=== PATIENT | female | born 1945 | race Caucasian/White ===

== ENCOUNTER 2016-07-07 13:59 | Inpatient (IN) | payer MEDICARE, OTHER ==
[~2016-07-07] VITALS: Ht 167.6 cm; Wt 69.0 kg
[~2016-07-07 13:59] MED LIST: ALBUTEROL IN200 PUFF INH; ALDACTONE25 MG PO; AMIODARONE HCL200 MG PO; ASPIRIN EC81 MG PO; ATROVENT2.5 ML NEB; BENADRYL25 MG PO; BUMEX1 MG PO; CARAFATE1 GM PO; CEFDINIR300 MG PO; CHILDRENS CHEWA81 MG PO; COLACE100 MG PO; COUGH CONT100 MG/5 M PO; CYANOCOBAL1000 MCG/M SC; FEOSOL325 MG PO; FERROUS SULFAT325 MG PO; FLEXERIL10 MG PO; FLONASE 0.05% N16 GM; FOLIC ACID1 MG PO; GLUCOPHAGE500 MG PO; LANOXIN125 MCG PO; LASIX20 MG PO; LEVAQUIN250 MG PO; LEVAQUIN500 MG PO; LEVAQUIN750 MG PO; LEXAPRO10 MG PO; LEXAPRO20 MG PO; MAGOX 400400 MG PO; METOPROLOL SUCC25 MG PO; MILK OF MA400 MG/5 M PO; NEURONTIN800 MG PO; PANTOPRAZOLE SO40 MG PO; POTASSIUM CHLO20 ME1 PO; PREDNISONE10 MG PO; PULMICORT0.5 MG/2 M INH; REQUIP1 MG PO; RESTORIL15 MG PO; SINGULAIR10 MG PO; SPIRIVA18 MCG INH; SYMBICORT 16010.2 GM INH; SYMBICORT 80-10.2 GM INH; SYNTHROID50 MCG PO; SYNTHROID75 MCG PO; THIAMINE HCL100 MG PO; TYLENOL325 M1 PO; VISTARIL25 MG PO; VITAMIN B-12500 MCG PO; XARELTO20 MG PO; XOPENEX0.63 MG/3 NEB; ZANTAC150 MG PO; ZEBETA5 MG PO; ZOCOR20 MG PO; ZOFRAN4 MG PO
[2016-07-08 07:18] LABS: HEMATOCRIT 34.5 % (34-45); HEMOGLOBIN 10.9 g/dL (11.2-15.7); MEAN CORPUSCULAR HEMOGLOBIN 30.8 pg (27.0-33.0); MEAN CORPUSCULAR HGB CONC 31.6 g/dL (32.0-36.0); MEAN CORPUSCULAR VOLUME 97.5 fL (79-95); MEAN PLATELET VOLUME 10.3 fl (7.5-11.5); RED BLOOD COUNT 3.54 x10_6/uL (3.9-5.2); WHITE BLOOD COUNT 3.7 x10_3/uL (4.0-10.0)
[2016-07-08 07:36] LABS: CALCIUM 8.7 mg/dL (8.7-10.7); POTASSIUM 4.1 mmol/L (3.5-5.1)
[2016-07-11 06:28] LABS: CALCIUM 8.5 mg/dL (8.7-10.7); HEMATOCRIT 31.4 % (34-45); HEMOGLOBIN 9.9 g/dL (11.2-15.7); MEAN CORPUSCULAR HEMOGLOBIN 30.7 pg (27.0-33.0); MEAN CORPUSCULAR HGB CONC 31.5 g/dL (32.0-36.0); MEAN CORPUSCULAR VOLUME 97.2 fL (79-95); MEAN PLATELET VOLUME 9.7 fl (7.5-11.5); POTASSIUM 4.8 mmol/L (3.5-5.1); RED BLOOD COUNT 3.23 x10_6/uL (3.9-5.2); RED CELL DISTRIBUTION WIDTH 16.4 % (11.7-14.4)
[2016-07-13 07:23] LABS: BLOOD UREA NITROGEN 14 mg/dL (7-18); CALCIUM 8.7 mg/dL (8.7-10.7); CARBON DIOXIDE 27 mmol/L (21-32); CREATININE 0.9 mg/dL (0.6-1.3); GLUCOSE,RANDOM 102 mg/dL (70-99); POTASSIUM 3.9 mmol/L (3.5-5.1); SODIUM 139 mmol/L (136-145)
[2016-07-14 07:57] LABS: HEMATOCRIT 32.9 % (34-45); HEMOGLOBIN 10.2 g/dL (11.2-15.7); MEAN CORPUSCULAR HEMOGLOBIN 30.4 pg (27.0-33.0); MEAN CORPUSCULAR VOLUME 98.2 fL (79-95); MEAN PLATELET VOLUME 10.2 fl (7.5-11.5); RED BLOOD COUNT 3.35 x10_6/uL (3.9-5.2); RED CELL DISTRIBUTION WIDTH 16.7 % (11.7-14.4); WHITE BLOOD COUNT 4.2 x10_3/uL (4.0-10.0)
[2016-07-14 08:28] LABS: BLOOD UREA NITROGEN 12 mg/dL (7-18); CALCIUM 8.7 mg/dL (8.7-10.7); CARBON DIOXIDE 29 mmol/L (21-32); CREATININE 0.9 mg/dL (0.6-1.3); GLUCOSE,RANDOM 88 mg/dL (70-99); SODIUM 142 mmol/L (136-145)
[2016-07-18 07:31] LABS: HEMATOCRIT 31.8 % (34-45); HEMOGLOBIN 10.1 g/dL (11.2-15.7); MEAN CORPUSCULAR HEMOGLOBIN 31.3 pg (27.0-33.0); MEAN CORPUSCULAR HGB CONC 31.8 g/dL (32.0-36.0); MEAN CORPUSCULAR VOLUME 98.5 fL (79-95); MEAN PLATELET VOLUME 9.6 fl (7.5-11.5); RED BLOOD COUNT 3.23 x10_6/uL (3.9-5.2); RED CELL DISTRIBUTION WIDTH 16.9 % (11.7-14.4); WHITE BLOOD COUNT 3.5 x10_3/uL (4.0-10.0)
[2016-07-18 07:42] LABS: BLOOD UREA NITROGEN 11 mg/dL (7-18); CALCIUM 8.6 mg/dL (8.7-10.7); CARBON DIOXIDE 31 mmol/L (21-32); CREATININE 0.9 mg/dL (0.6-1.3); GLUCOSE,RANDOM 97 mg/dL (70-99); POTASSIUM 4.4 mmol/L (3.5-5.1); SODIUM 140 mmol/L (136-145)
[2016-07-21 07:40] LABS: HEMATOCRIT 33.3 % (34-45); HEMOGLOBIN 10.1 g/dL (11.2-15.7); MEAN CORPUSCULAR HEMOGLOBIN 30.5 pg (27.0-33.0); MEAN CORPUSCULAR HGB CONC 30.3 g/dL (32.0-36.0); MEAN CORPUSCULAR VOLUME 100.6 fL (79-95); MEAN PLATELET VOLUME 9.8 fl (7.5-11.5); RED BLOOD COUNT 3.31 x10_6/uL (3.9-5.2); RED CELL DISTRIBUTION WIDTH 17.3 % (11.7-14.4); WHITE BLOOD COUNT 3.5 x10_3/uL (4.0-10.0)
[2016-07-21 07:54] LABS: BLOOD UREA NITROGEN 10 mg/dL (7-18); CALCIUM 8.4 mg/dL (8.7-10.7); CARBON DIOXIDE 27 mmol/L (21-32); CREATININE 0.8 mg/dL (0.6-1.3); GLUCOSE,RANDOM 89 mg/dL (70-99); SODIUM 142 mmol/L (136-145)
== END 2016-07-24 10:11 | disposition home or self-care (01) | DRG 178 ==
LOC: SWING 13:59
PROVIDERS: Family Medicine; ADMIT Family Medicine
DX: J15.212 Pneumonia due to Methicillin resistant Staphylococcus aureus (principal); J44.1 Chronic obstructive pulmonary disease with (acute) exacerbation; M62.50 Muscle wasting and atrophy, not elsewhere classified, unspecified site; I11.9 Hypertensive heart disease without heart failure; I50.9 Heart failure, unspecified; E11.9 Type 2 diabetes mellitus without complications; I25.10 Atherosclerotic heart disease of native coronary artery without angina pectoris; I48.91 Unspecified atrial fibrillation; Z51.89 Encounter for other specified aftercare; Z79.899 Other long term (current) drug therapy; Z79.01 Long term (current) use of anticoagulants; K30 Functional dyspepsia; R05 Cough; Z79.84 Long term (current) use of oral hypoglycemic drugs
CPT/HCPCS: 36415; 71020; 80048; 80202; 82962; 94640; 97110; 97116; 97530; 99070; J2930; J3370

== ENCOUNTER 2016-09-22 13:58 | Observation (INO) | payer MEDICARE, OTHER ==
[~2016-09-22] VITALS: Ht 167.6 cm; Wt 71.0 kg
[2016-09-22 14:19] LABS: BASO % 0.3 % (0.1-1.2); EOS # 0.1 10_X3_uL (0.0-0.4); EOS % 2.9 % (0.7-5.8); GRAN # 2.2 10_X3_uL (1.6-6.1); GRAN % 59.3 % (34.0-71.1); HEMATOCRIT 33.3 % (34-45); HEMOGLOBIN 10.2 g/dL (11.2-15.7); LYMPH # 1.1 10_X3_uL (1.2-3.7); MEAN CORPUSCULAR HGB CONC 30.6 g/dL (32.0-36.0); MEAN CORPUSCULAR VOLUME 104.4 fL (79-95); MONO # 0.3 10_X3_uL (0.2-0.9); MONO % 7.5 % (4.7-12.5); PLATELET COUNT 110 x10_3/uL (182-369); RED BLOOD COUNT 3.19 x10_6/uL (3.9-5.2); RED CELL DISTRIBUTION WIDTH 14.3 % (11.7-14.4); WHITE BLOOD COUNT 3.7 x10_3/uL (4.0-10.0)
[2016-09-22 14:33] LABS: ALBUMIN 3.8 gm/dL (3.4-5.0); ALKALINE PHOSPHATASE 64 U/L (50-136); ALT/SGPT 11 U/L (3.5-33.9); AST/SGOT 18 U/L (7.04-26.96); BILIRUBIN,TOTAL 0.32 mg/dL (0.0-1.0); BLOOD UREA NITROGEN 9 mg/dL (7-18); CALCIUM 8.8 mg/dL (8.7-10.7); CARBON DIOXIDE 28 mmol/L (21-32); CREATINE KINASE 46 U/L (21-215); CREATININE 0.7 mg/dL (0.6-1.3); GLUCOSE,RANDOM 102 mg/dL (70-99); POTASSIUM 5.1 mmol/L (3.5-5.1); SODIUM 146 mmol/L (136-145); TOTAL PROTEIN 6.1 gm/dL (6.4-8.2)
[2016-09-23 07:24] LABS: AHDL CHOLESTEROL 76 mg/dL (>40); ALBUMIN 3.5 gm/dL (3.4-5.0); ALKALINE PHOSPHATASE 59 U/L (50-136); ALT/SGPT 11 U/L (3.5-33.9); AST/SGOT 15 U/L (7.04-26.96); BILIRUBIN,TOTAL 0.27 mg/dL (0.0-1.0); BLOOD UREA NITROGEN 17 mg/dL (7-18); CALCIUM 8.5 mg/dL (8.7-10.7); CARBON DIOXIDE 26 mmol/L (21-32); CHOLESTEROL 168 mg/dL (0-200); CREATININE 0.9 mg/dL (0.6-1.3); GLUCOSE,RANDOM 183 mg/dL (70-99); LDL CHOLESTEROL 89 mg/dL (0-99); POTASSIUM 4.2 mmol/L (3.5-5.1); SODIUM 141 mmol/L (136-145); TOTAL PROTEIN 5.7 gm/dL (6.4-8.2); TRIGLYCERIDES 62 mg/dL (30-200)
[2016-09-23 15:35] LABS: CKMB 1.6 ng/ml (0.0-5.0)
[2016-09-23 15:36] LABS: TROP-I < 0.30 NG/ML (0.00-0.30)
[2016-09-23 21:48] LABS: CKMB 1.7 ng/ml (0.0-5.0)
[2016-09-23 21:49] LABS: TROP-I < 0.30 NG/ML (0.00-0.30)
[2016-09-24 08:15] LABS: HEMOGLOBIN 9.4 g/dL (11.2-15.7); MEAN CORPUSCULAR HEMOGLOBIN 32.3 pg (27.0-33.0); MEAN CORPUSCULAR HGB CONC 31.3 g/dL (32.0-36.0); MEAN CORPUSCULAR VOLUME 103.1 fL (79-95); MEAN PLATELET VOLUME 10.8 fl (7.5-11.5); RED BLOOD COUNT 2.91 x10_6/uL (3.9-5.2); RED CELL DISTRIBUTION WIDTH 13.8 % (11.7-14.4); WHITE BLOOD COUNT 4.8 x10_3/uL (4.0-10.0)
[2016-09-24 08:26] LABS: CALCIUM 8.4 mg/dL (8.7-10.7); CREATININE 1.2 mg/dL (0.6-1.3); POTASSIUM 4.3 mmol/L (3.5-5.1)
== END 2016-09-24 11:40 | disposition home or self-care (01) ==
LOC: ER 13:58 → MS 16:10
PROVIDERS: Emergency Medicine; ADMIT Family Medicine
DX: J44.1 Chronic obstructive pulmonary disease with (acute) exacerbation (principal); I11.0 Hypertensive heart disease with heart failure; I50.9 Heart failure, unspecified; N28.9 Disorder of kidney and ureter, unspecified; E11.9 Type 2 diabetes mellitus without complications; R09.02 Hypoxemia; R07.89 Other chest pain; M79.602 Pain in left arm; I25.10 Atherosclerotic heart disease of native coronary artery without angina pectoris; I48.91 Unspecified atrial fibrillation; R19.7 Diarrhea, unspecified; R63.4 Abnormal weight loss; R00.1 Bradycardia, unspecified; F41.9 Anxiety disorder, unspecified; F32.9 Major depressive disorder, single episode, unspecified; Z87.891 Personal history of nicotine dependence; E03.9 Hypothyroidism, unspecified; Z99.81 Dependence on supplemental oxygen; K21.9 Gastro-esophageal reflux disease without esophagitis; Z90.710 Acquired absence of both cervix and uterus; Z79.899 Other long term (current) drug therapy; Z79.84 Long term (current) use of oral hypoglycemic drugs; Z68.25 Body mass index [BMI] 25.0-25.9, adult; Z86.73 Personal history of transient ischemic attack (TIA), and cerebral infarction without residual deficits
CPT/HCPCS: 36415; 71010; 80048; 80053; 80061; 80162; 82550; 82553; 82962; 83036; 83880; 84443; 85025; 87040; 93005; 93041; 94640; 94664; 96365; 96367; 96375; 96376; 99070; 99284; 99285-25; G0378; J2930; J7050